=== PATIENT | male | born 1945 | race Caucasian/White ===

== ENCOUNTER 2018-09-04 13:57 | Inpatient (IN) | payer MEDICARE, OTHER ==
[~2018-09-04] VITALS: Ht 172.7 cm; Wt 67.2 kg
[~2018-09-04 13:57] MED LIST: CEPHALEXIN250 M1 PO; CLONIDINE0.3 MG PO; COREG25 MG PO; HTN MEDS; ISOSORBIDE DINI20 MG PO; LORTAB 5/500 501 TAB PO; LOVASTATIN40 MG PO; UNABLE
[2018-09-04 14:33] VITALS: BP 112/75; PULSE 99; TEMP 98.2
[2018-09-04] MEDS ORDERED: ASPIRIN 81M81 MG/TA2 PO (14:37)
[2018-09-04] MEDS ORDERED: TYLENOL 325MG325 MG PO (14:37)
[2018-09-04] MEDS ORDERED: NORCO 325 MG-51 TAB PO (14:38)
[2018-09-04] MEDS ORDERED: NATURE'S BLEND100 M2 PO (14:39)
[2018-09-04] MEDS ORDERED: MIRALAX PA17 GM/Dose PO (14:39)
[2018-09-04] MEDS ORDERED: FOLIC ACID 11 MG/TA1 PO (14:40)
[2018-09-04] MEDS ORDERED: CYMBALTA 60MG60 MG PO (14:40)
[2018-09-04] MEDS ORDERED: PLAQUENIL 200M200 MG PO (14:41)
[2018-09-04] MEDS ORDERED: NEURONTIN300 MG/CAP PO (15:03)
--- NOTE | 2018-09-04 18:00 | NUR ---
Michael arrived to [facility] with daughter by his side. Patient is NWB to Rt Lower extremity due to a displaced Tib/Fib Fx. Patient was A&OX4 upon arrival and VSS. NKDA. Pain 6/10 and given prn Mazon with good effect. Will continue to monitor. Patient tolerating diet well this evening, reporting no nausea. Patient takes pills whole with water. Will continue to monitor.
[2018-09-04 18:30] VITALS: BP 115/72; PULSE 95; TEMP 98
--- NOTE | 2018-09-04 20:00 | NUR ---
Patient contact guard assist to the bathroom with gaitbelt and walker. Non wt bearing RLE and hops LLE. Rests self back in bed. Denies pain at this time. See admission assessment form. Patient alert and oriented and adament will not get up without assist.
--- NOTE | 2018-09-04 22:00 | NUR ---
Patient rests in bed on left side. Respirations with ease.
--- NOTE | 2018-09-05 03:00 | NUR ---
Patient has been resting in bed with eyes closed. Repositions himself from side to side.
[2018-09-05 03:54] VITALS: BP 113/72; PULSE 86; TEMP 98.6
--- NOTE | 2018-09-05 09:04 | NUR ---
Resting in recliner at this time, call light in reach and in pleasent mood. Patient very talkative.
--- NOTE | 2018-09-05 11:49 | NUR ---
Dr. George spoke with patient and patient said that he had an appointment with his surgeon in [place], [place] on Thursday at 7:45 AM. This nurse called and spoke with patient's daughters to clarify this upcoming appointment. Mariela, daughter said it was an automated reminder only. Padma reported that this appointment was to be cancelled. Patient will be seeing our Orthopedic doctor and that this was agreed on by [facility]. Patient will need to be seen on Thursday 09/07 if possible to evaluate weight bearing status. He is currently NWB to Right Lower Extremity. Patient was getting dressing changes done every 3 days for a time period when he had a baby wound vac, but he no longer has the wound vac. An order for Ortho consult will be put in per orders received from [facility]. This will be communicated to Dr. George.
--- NOTE | 2018-09-05 14:59 | NUR ---
Patient lives at home with his daughter in [place], [place] and plans to return home upon his recovery. Patient's family members, especially his daughters (Mariela and Jenny) are supportive as needed. Patient uses a cane for mobility assistance as needed, his primary care physician is Dr. Catrachita Jin ([place]), his pharmacy is [facility], and he does not have advance directives completed or on file at this time. No further needs at this time and social media marketing analyst will follow as needed.
[2018-09-05 17:22] VITALS: BP 121/74; PULSE 91; TEMP 99.1
--- NOTE | 2018-09-05 20:49 | NUR ---
Per Dr. George's request this nurse communicated to the night nurse Mikaela, to have the day nurse on 09/06/[address] Dusty Cook @ [facility] to clarify that there was communication between Dr. Cook and our Orthopedic department regarding taking over care for patient. She voiced understanding.
--- NOTE | 2018-09-06 02:06 | NUR ---
THE PT WAS BEDRESTING, PLEASANT, CSM'S TO RIGHT LOWER EXTREMITY +. DENIED PAIN. ENCOURAGED AN HS SNACK AND FLUIDS HIS URINE IS TOM. HE JUST WANTED HIS WATER. THIS NURSE LATER READ THAT PLAQUINIL NEEDS TO BE GIVEN WITH MEAL OR FOOD BUT THE PT HAD REFUSED THE SNACK AND WAS NOW RESTING WITH EYES CLOSED, RESP EVEN. WILL MONITOR FOR LOW URINARY OUTPUT IT IS ALSO AN ADVERSE SIDE EFFECT OF IT.
--- NOTE | 2018-09-06 04:45 | NUR ---
BEDRESTING WITH EYES CLOSED, RESP EVEN. APPEARS TO GET ADEQUATE SLEEP TONIGHT.
[2018-09-06 05:26] VITALS: BP 142/84; PULSE 85; TEMP 98.1
--- NOTE | 2018-09-06 08:00 | NUR ---
PATIENT SITTING UP IN BED THIS MORNING. PATIENT IS A&O. TACHYCARDIA NOTED, OTHERWISE VSS. BOWEL SOUNDS ACTIVE ALL FOUR QUADRANTS. PATIENT TOLERATING DIET WITHOUT ANY COMPLAINTS OF N/V. POSITIVE POPLITEAL PULSES EQUAL BILATERALLY. RIGHT LOWER LEG DRESSED WITH SPLINT AND JOSUE WRAP. RLE DRESSING IS CD&I. CAP REFILL <3 SECONDS. CMS INTACT TO BLE. CALL LIGHT WITHIN REACH. PATIENT DENIES ANY OTHER NEEDS AT THIS TIME.
--- NOTE | 2018-09-06 12:29 | NUR ---
First visit from the clinical nursing intern. No needs right now.
[2018-09-06 17:48] VITALS: BP 131/75; PULSE 108; TEMP 98.9
--- NOTE | 2018-09-07 01:02 | NUR ---
THE PT WAS BEDRESTING, WATCHES TV, PLEASANT. CSM TO RIGHT FOOT +. CONVERSATION SHARED HE SEEMS RATHER LONESOME. VERBALIZED OF HIS FAMILY AND CAREER. HE DENIED PAIN, WAS AGREEABLE TONIGHT TO DRINK A CARTON OF MILK WITH HIS PLAQUANIL. WHEN ASKED WHY HE IS ON IT, HE STATED THAT HIS MANILA DOCTOR CHANGED SEVERAL THINGS BUT HE ISN'T SURE WHY. HE VOIDS PER URINAL AND IS AWARE AND COMPLIANT WITH HIS FREE WATER LIMITATIONS. A PILLOW WAS PLACED TO ELEVATE HIS RIGHT FOOT.
--- NOTE | 2018-09-07 04:12 | NUR ---
THE PT IS BEDRESTING WITH EYES CLOSED, RIGHT LOWER EXTREMITY CONTINUES TO BE ELEVATED ON PILLOW.
[2018-09-07 06:28] VITALS: BP 142/79; PULSE 75; TEMP 98.6
[2018-09-07 17:17] VITALS: BP 129/72; PULSE 92; TEMP 98.2
--- NOTE | 2018-09-07 18:17 | NUR ---
Pt to CT for RLE with tech
--- NOTE | 2018-09-07 20:19 | NUR ---
Shift assessment complete. Patient ambulated to BR with assist x1, gait belt, and walker. Back to bed, pt tolerated well. Denies pain. Will continue to monitor.
--- NOTE | 2018-09-07 21:01 | NUR ---
Summary: Morning report from LINDA Al. Pt A&O, pleasant, has accent, conversational. Minimal pain, declines PRN pain meds. Splint to RLE intact. Pt on fluid and free water restriction. Reports feet and toes numb bilaterally, denies dizziness. CGA for bed/chair/amb transfers with gait belt and FWW, NWB to RLE maintained, steady. Returned after CT to room, toileted, report to Deborah.
--- NOTE | 2018-09-08 00:11 | NUR ---
Patient in bed, sleeping. Appears comfortable. Will continue to assess.
--- NOTE | 2018-09-08 04:11 | NUR ---
Patient in bed, sleeping. Appears comfortable. Will reassess when awake.
[2018-09-08 05:40] VITALS: BP 140/85; PULSE 75; TEMP 97.9
[2018-09-08 07:13] LABS: CREATININE, serum 0.58 mg/dL (0.66-1.25); MAGNESIUM 1.5 mg/dL (1.6-2.3); POTASSIUM 3.8 mmol/L (3.4-5.0)
--- NOTE | 2018-09-08 09:48 | NUR ---
Report from Deborah. Pt declined tylenol prior to therapy. On fluid restriction, reviewed fluid and free water restriction with pt, rechecked sodium level this morning per Dr. George. Dr. Lui's contract administrative assistant, Flaco, called about CT findings r/t to RLE and passed along report to Emili, IPR director. Pt follows NWB to RLE with amb with FWW, gait belt, CGA.
--- NOTE | 2018-09-08 14:39 | NUR ---
Pt bedresting with alarm on, call light in reach.
[2018-09-08 15:43] VITALS: BP 125/81; PULSE 95; TEMP 98
--- NOTE | 2018-09-08 15:49 | NUR ---
SW attended a family conference with patient and his daughter, Denzel. Also present was IPR director, PT and OT. IPR director started by explaining the purpose of the family meeting. PT and OT spoke about how patient was progressing and the recommendations for discharge. It is recommended that patient utilizes home health services for PT and OT. IPR director gave tentative discharge date of Monday 09/11. IPR team answered all patient and daughters questions. SW then followed up with patient to review team conference notes. SW also inquired about home health choices. Patient reported he would like SW to speak with his daughter tomorrow. BRITTA will continue to follow.
--- NOTE | 2018-09-08 20:30 | NUR ---
Patient rests in bed and denies pain. HS meds all reviewed and given. RLE elevated on pillow and splint/augusto CDI. Pitting edema noted right foot. Foot pink and warm. Up to sink with observation and walker and does HS care then rests self back in bed.
--- NOTE | 2018-09-08 23:00 | NUR ---
Patient rests on left side. Respirations with ease.
--- NOTE | 2018-09-09 02:20 | NUR ---
Patient resting with eyes closed. Respirations with ease.
--- NOTE | 2018-09-09 05:15 | NUR ---
Awakened for am vitals. Denies pain or needs. Urinal emptied of dk leandra clear urine. Has 3/4 full gatorade at bedside.
[2018-09-09 05:56] VITALS: BP 134/71; PULSE 77; TEMP 99
--- NOTE | 2018-09-09 07:33 | NUR ---
Patient resting in bed at this time, call light in reach bed alarm on and denies pain. Tolerating diet well eating 75% of his breakfast this morning. Will continue to monitor.
[2018-09-09 18:00] VITALS: BP 139/77; PULSE 88; TEMP 99.7
--- NOTE | 2018-09-09 18:00 | NUR ---
Patient attended all therapies today and is currently lying in bed at this time. Patient was made independent in his room with a walker this afternoon. Patient urine is dark yellow and has been drinking fluids. He is currently on a 500 ml Free Water restriction and 1500 ml total fluid restriction. Patient tolerating well. Patient reported some pain to RLE, but refused any pain meds. Will continue to monitor.
--- NOTE | 2018-09-09 21:00 | NUR ---
PT RESTING IN BED. READY FOR BED. DENIES PAIN. SPLINT INTACT TO RLE. GOOD SENSATION AND MOVEMENT OF TOES. SKIN WD. MOD I IN ROOM WITH WALKER/ NWB RLE. CALL LIGHT IN REACH.
[2018-09-10 05:02] VITALS: BP 123/61; PULSE 64; TEMP 98.4
[2018-09-10 05:41] LABS: BASO % 0.4 % (0.0-2.0); EOS # 0.1 (0.0-0.7); EOS % 2.1 % (0-4.0); GRAN # 3.7 (1.4-6.5); LYMPH # 1.9 (1.2-3.4); LYMPH % 27.8 % (20.0-51.0); MEAN CELL VOLUME 94 fl (80.0-100.0); MEAN CORPUSCULAR HGB CONC 34 g/dl (33.0-37.0); MEAN PLATELET VOLUME 10.3 fl (7.4-10.4); MONO # 0.9 (0.1-0.6); MONO % 13.7 % (1.7-9.3); PLATELET COUNT 391 K/mm3 (130-400); RED BLOOD COUNT 2.93 M/mm3 (4.20-5.60); REDCELL DISTRIBUTION WIDTH-CV 13.1 % (11.5-14.5)
[2018-09-10 05:42] LABS: HEMATOCRIT 27.6 % (42.0-52.0); HEMOGLOBIN 9.3 g/dl (13.5-18.0); MEAN CORPUSCULAR HEMOGLOBIN 32 pg (27.0-31.0)
[2018-09-10 05:48] LABS: CALCIUM 8.8 mg/dL (8.4-10.2); CREATININE, serum 0.56 mg/dL (0.66-1.25); MAGNESIUM 1.6 mg/dL (1.6-2.3); POTASSIUM 3.8 mmol/L (3.4-5.0)
--- NOTE | 2018-09-10 07:59 | NUR ---
Report from LINDA Saucedo. Pt bindu mod i in rm w/ platform walker. Urinal thrown away as pt is mod I. Pt declines pain meds, 08/15 rating. A&O, pleasant. Good CMS to RLE toes.
--- NOTE | 2018-09-10 09:55 | NUR ---
SW met with patient about home health options. SW provided [email or web address] home health resource list. Patient will speak with his daughters about choice. BRITTA will follow up with patient this afternoon.
--- NOTE | 2018-09-10 16:03 | NUR ---
SW spoke with patient about home health choices. Patient reviewed the [email or web address] home health resource list and chose [facility]. SW faxed referral for PT/OT. Weekend SW will fax discharge orders tomorrow.
[2018-09-10 17:00] VITALS: BP 136/85; PULSE 93; TEMP 98.7
--- NOTE | 2018-09-10 21:00 | NUR ---
PT RESTING IN BED. MOD I INROOM. ENC PT TO CALL IF NEEDING ANY ASSIST. PT AGREES. STILL NWB ON RLE. DENIES NEED FOR JASS MEDICATION. CALL LIGHT IN REACH.
[2018-09-11 06:24] VITALS: BP 144/86; PULSE 81; TEMP 98.6
[2018-09-11] MEDS ORDERED: ULTRAM 50MG TAB50 MG PO (08:32)
--- NOTE | 2018-09-11 09:38 | NUR ---
Patient reports sleeping well last night. Pain to right lower extremity refused any pain meds. Discussed discharge today. Will continue to monitor.
--- NOTE | 2018-09-11 13:17 | NUR ---
Patient Health Summary, Discharge Summary, and Home Meds printed and reviewed with patient. Stressed importance of follow up appointments. Belongings gathered by RN/Terra including glasses, walker, Sara, cell phone, and chargers. Patient transported via wheelchair by [facility]IVE/John and seatbelted for ride home with daughter. Patient denied any questions.
== END 2018-09-11 12:35 | disposition home health service (06) | DRG 560 ==
PROVIDERS: ADMIT Internal Medicine
DX: S82.201D Unspecified fracture of shaft of right tibia, subsequent encounter for closed fracture with routine healing (principal); E87.1 Hypo-osmolality and hyponatremia; S82.401D Unspecified fracture of shaft of right fibula, subsequent encounter for closed fracture with routine healing; W00.0XXD Fall on same level due to ice and snow, subsequent encounter; S92.301D Fracture of unspecified metatarsal bone(s), right foot, subsequent encounter for fracture with routine healing; I10 Essential (primary) hypertension; E78.5 Hyperlipidemia, unspecified; G89.29 Other chronic pain; M06.9 Rheumatoid arthritis, unspecified; Z85.828 Personal history of other malignant neoplasm of skin; Z87.891 Personal history of nicotine dependence; F10.10 Alcohol abuse, uncomplicated; F32.9 Major depressive disorder, single episode, unspecified
CPT/HCPCS: 99222-AI; 99232-AI; 99233-AI; 99239; J1650

== ENCOUNTER → 2018-10-04 | Outpatient (CLI) | payer MEDICARE, OTHER ==
[~2018-10-04] MED LIST changes: +ASPIRIN 81M81 MG/TA2 PO; +CYMBALTA 60MG60 MG PO; +FOLIC ACID 11 MG/TA1 PO; +MIRALAX PA17 GM/Dose PO; +NATURE'S BLEND100 M2 PO; +NEURONTIN300 MG/CAP PO; +NORCO 325 MG-51 TAB PO; +PLAQUENIL 200M200 MG PO; +TYLENOL 325MG325 MG PO; +ULTRAM 50MG TAB50 MG PO
== END ==
LOC: COL.VAS 14:25
DX: M79.89 Other specified soft tissue disorders (principal); Z98.890 Other specified postprocedural states

== ENCOUNTER 2019-01-26 10:45 | Outpatient (RCR) | payer MEDICARE, OTHER | END 2019-02-07 | disposition home or self-care (01) | LOC: WSPT | DX: S82.201A Unspecified fracture of shaft of right tibia, initial encounter for closed fracture (principal); S92.301A Fracture of unspecified metatarsal bone(s), right foot, initial encounter for closed fracture; Z98.890 Other specified postprocedural states ==

== ENCOUNTER 2020-01-28 18:05 | Emergency (ER) | payer MEDICARE, OTHER ==
[~2020-01-28] VITALS: Ht 172.7 cm; Wt 62.7 kg
[2020-01-28 18:11] VITALS: TEMP 98.2
[2020-01-28 18:53] LABS: BASO % 0.3 % (0.0-2.0); EOS % 0.3 % (0-4.0); GRAN # 4.5 (1.4-6.5); GRAN % 61.5 % (42.2-75.2); HEMATOCRIT 43.5 % (42.0-52.0); HEMOGLOBIN 14.9 g/dl (13.5-18.0); MEAN CELL VOLUME 92 fl (80.0-100.0); MEAN CORPUSCULAR HEMOGLOBIN 31 pg (27.0-31.0); MEAN CORPUSCULAR HGB CONC 34 g/dl (33.0-37.0); MEAN PLATELET VOLUME 10.8 fl (7.4-10.4); MONO # 0.7 (0.1-0.6); MONO % 9.6 % (1.7-9.3); PLATELET COUNT 159 K/mm3 (130-400); RED BLOOD COUNT 4.75 M/mm3 (4.20-5.60); REDCELL DISTRIBUTION WIDTH-CV 14.7 % (11.5-14.5)
[2020-01-28 19:03] LABS: ALBUMIN 5.1 gm/dL (3.5-5.0); BILIRUBIN,TOTAL 1.5 mg/dL (0.0-1.0); CALCIUM 10.2 mg/dL (8.4-10.2); CREATININE, serum 0.72 (0.66-1.25); POTASSIUM 3.2 mmol/L (3.4-5.0); TOTAL PROTEIN 8.9 gm/dL (6.4-8.2)
[2020-01-28 19:53] LABS: COLLECTION METHOD CLEAN CATCH
[2020-01-28 20:05] LABS: MUCOUS Present /lpf; PH 6 (5-8); SQUAMOUS EPITHELIAL 0-2 /hpf; URINE APPEARANCE Clear; URINE BACTERIA None Seen /hpf; URINE BILIRUBIN Negative (NEGATIVE); URINE BLOOD 1+ (NEGATIVE); URINE COLOR Yellow; URINE GLUCOSE Negative (NEGATIVE); URINE KETONE 2+ (NEGATIVE); URINE LEUKOCYTE ESTERASE Negative (NEGATIVE); URINE NITRATE Negative (NEGATIVE); URINE PROTEIN(semi-quant) 1+ (NEGATIVE); URINE UROBILINOGEN Negative (NEGATIVE)
[2020-01-28] MEDS ORDERED: K-DUR20 MEQ PO (20:55)
[2020-01-28 21:20] VITALS: BP 146/86; PULSE 86
== END 2020-01-28 21:11 | disposition home or self-care (01) ==
LOC: COL.ER 18:05
PROVIDERS: Emergency Medicine
DX: E87.6 Hypokalemia (principal); R00.0 Tachycardia, unspecified
CPT/HCPCS: J7030